=== PATIENT | female | born 1965 | race Caucasian/White ===

== ENCOUNTER → 2020-10-21 | Outpatient (CLI) | payer BC, OTHER ==
[2020-10-22 08:13] LABS: VITAMIN D, 25-HYDROXY 22.3 ng/mL (30.0-100.0)
[2020-10-22 09:13] LABS: RHEUMATOID ARTHRITIS FACTOR <10.0 IU/mL (0.0-13.9)
[2020-10-25 02:11] LABS: CCP ANTIBODIES IGG/IGA 17 units (0-19)
== END ==
LOC: LAB 07:56
PROVIDERS: Internal Medicine
DX: D89.89 Other specified disorders involving the immune mechanism, not elsewhere classified (principal); M25.50 Pain in unspecified joint; R76.8 Other specified abnormal immunological findings in serum; E55.9 Vitamin D deficiency, unspecified
CPT/HCPCS: 36415; 83520; 85652; 86140; 86200; 86431